=== PATIENT | male | born 1990 | race Caucasian/White ===

== ENCOUNTER 2016-11-11 13:53 | Emergency (ER) | payer BC ==
[~2016-11-11] VITALS: Ht 177.8 cm; Wt 100.0 kg
[2016-11-11 14:03] VITALS: BP 156/92
--- NOTE | 2016-11-11 14:15 | PHYS DOC ---
General Chief Complaint: Neck Pain Stated Complaint: NECK PAIN Time Seen by MD: 13:59 Source: patient Exam Limitations: no limitations Problems: History of Present Illness Initial Comments Patient is a 26-year-old male who comes in the ED complaining of neck pain. Patient states that he awoke this morning with right sided neck muscle spasm and tenderness and difficulty turning his head to the left. He denies any trauma he has no headache or focal neurologic deficit. He denies prior neck injury or other complaints. Timing/Duration: 4-6 hours Severity: mild Modifying Factors: worse with movement, improves with rest Associated Symptoms: other Allergies: Coded Allergies: No Known Drug Allergies (Unverified , 11/11/16) Past Medical History Medical History: no pertinent history Surgical History: noncontributory Social History Smoker: non-smoker Alcohol: none Drugs: none Review of Systems Constitutional: denies chills, denies fever Respiratory: denies cough, denies shortness of breath Cardiovascular: denies chest pain, denies palpitations Gastrointestinal: denies nausea, denies vomiting Musculoskeletal: see HPI Psychiatric/Neurological: denies headache, denies numbness, denies paresthesia Physical Exam General Appearance: WD/WN, no apparent distress Eyes: bilateral eye normal inspection, bilateral eye PERRL, bilateral eye EOMI Ear, Nose, Throat: hearing grossly normal, normal ENT inspection, normal pharynx Neck: tender lateral (right sided paraspinal hypertonicity with tenderness no midline or bony tenderness no deformity negative Spurling compression test) Respiratory: normal breath sounds, no respiratory distress Cardiovascular: normal peripheral pulses, regular rate, rhythm Back: no CVA tenderness, no vertebral tenderness Extremities: non-tender, normal inspection 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 Patient expressed agreement and understanding of same. Departure Time of Disposition: 14:11 Disposition: 01 HOME, SELF-CARE Diagnosis: torticollis Condition: GOOD Patient Instructions: Torticollis, Acute Additional Instructions: Off work today and tomorrow if needed. Heating pad to affected area 15-20 minutes 4-6 times daily followed by gentle stretching. [id number] Tylenol as needed. Prescription: Cyclobenzaprine, prednisone Follow-up with your doctor this week for recheck. Return to the ED with new or changing symptoms. AMOL SANDOVAL DO Nov 11, 2016 14:15
== END 2016-11-11 14:29 | disposition home or self-care (01) ==
LOC: ER 13:53
DX: M43.6 Torticollis (principal)
CPT/HCPCS: 99283